=== PATIENT | female | born 1965 | race Hispanic/Latino ===

== ENCOUNTER 2017-08-12 09:44 | Observation (INO) | payer OTHER ==
--- OUTSIDE RECORDS SUMMARY | 2017-08-12 09:46 | XMS REPORT ---
:1965 Author Organization [facility] Address [address] [place] [address] Care Team Providers Name Role Phone UNKNOWN, REFFERING Primary Care Provider Unavailable Problems This patient has no known problems. Allergies, Adverse Reactions, Alerts This patient has no known allergies or adverse reactions. Medications This patient has no known medications. Encounters Start End Encounter Admission Attending Care Care Encounter Date/Time Date/Time Type Type Clinicians Facility Department ID 2017-02-14 2017-02-14 Emergency E [facility] [id number] 17:25:00 17:25:00 Results Test Description Test Time Test Comments Text Results Atomic Results Result Comments XR FOOT 3+V, COMPLETE-RIGHT 2017-02-14 18:07:15 EXAM: XR FOOT 3 VIEWS, RIGHTINDICATION: PainCOMPARISON: None availableTECHNIQUE: AP, lateral and oblique views of the right foot.FINDINGS: No acute fracture or dislocation is identified. No osseous lesions.There is joint space narrowing with osteophytosis of the tibiotalar andsubtalar joints. No soft tissue abnormality is identified.IMPRESSION: Degenerative changes of the tibiotalar and subtalar joints.LOCATION: R16 XR ANKLE 3+V, 2017-02-14 18:06:29 EXAM: XR ANKLE 3 VIEWS, COMPLETE-RIGHT RIGHTINDICATION: PainCOMPARISON: None availableTECHNIQUE: AP, lateral and oblique views of the right ankle.FINDINGS: No acute fracture or dislocation is identified. No osseous lesions.There are degenerative changes at the tibiotalar joint and subtalarjoints with osteophytosis noted. No soft tissue abnormality isidentified.IMPRESSION: Degenerative changes of the tibiotalar and subtalar joints.LOCATION: [facility]16 XR TIBIA/FIBULA.-RIGHT 2017-02-14 18:05:14 EXAM: XR TIBIA AND FIBULA 2 VIEWS, RIGHTINDICATION: PainCOMPARISON: None availableTECHNIQUE: AP and lateral views of the right tibia and fibula.FINDINGS: No acute fracture or dislocation is identified. No osseous lesions. Nosoft tissue abnormality is identified.IMPRESSION: No acute osseous abnormality of the right tibia and fibula.LOCATION: R16
--- NOTE | 2017-08-12 10:28 | ER ---
Nurse's Notes [facility] Name: Cat Barnes Age: 52 yrs Sex: Female : 1965 Arrival Date: 08/12/2017 Time: 09:50 Bed 4 Private MD: Diagnosis: Chest pain, unspecified;Essential (primary) hypertension Presentation: 08/12 09:53 Presenting complaint: EMS states: Was at work sitting at her desk and experienced ph sudden onset of sharp,midsternal chest pain that lasted approx 1 min, also reports SOB when episode occurred, denies radiation or N/V, pt hypertensive on scene w/ BP 190s/100s, 12 lead normal, 325 aspirin administered. Transition of care: patient was not received from another setting of care. Onset of symptoms was August 12, 2017. Risk Assessment: Do you want to hurt yourself or someone else? Patient reports no desire to harm self or others. Initial Sepsis Screen: Does the patient meet any 2 criteria? No. Patient's initial sepsis screen is negative. Does the patient have a suspected source of infection? No. Patient's initial sepsis screen is negative. Care prior to arrival: Medication(s) given: ASA, 325 mg, IV initiated. 20 GA, in the left antecubital area. 09:53 Method Of Arrival: EMS: [facility] ph 09:53 Acuity: DELTA 3 ph ADMISSIONS DEAN: 09:56 LMP N/A - Hysterectomy ph Historical: - Allergies: 10:01 No Known Allergies; ph - Home Meds: 10:01 clonazepam Oral [Active]; unknown BP med [Active]; ph - PMHx: 10:01 Hypertension; Anxiety; ph - PSHx: 10:01 Hysterectomy; back sx; ph - Immunization history:: Adult Immunizations unknown. - Social history:: Smoking status: Patient/guardian denies using tobacco. - Ebola Screening: : No symptoms or risks identified at this time. - Family history:: not pertinent. Screenin:01 Abuse screen: Denies threats or abuse. Denies injuries from another. Nutritional ph screening: No deficits noted. Tuberculosis screening: No symptoms or risk factors identified. Fall Risk None identified. Assessment: 10:02 General: Appears in no apparent distress. comfortable, well groomed, Behavior is calm, ph cooperative, appropriate for age. Pain: Denies pain. Neuro: Level of Consciousness is awake, alert, obeys commands, Oriented to person, place, time, situation. 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 Rhythm is sinus rhythm Chest pain quality is sharp, is located in substernal area began suddenly, episodes 1 min. Respiratory: Airway is patent Respiratory effort is even, unlabored, Respiratory pattern is regular, symmetrical, Breath sounds are clear bilaterally. GI: No signs and/or symptoms were reported involving the gastrointestinal system. Patient currently denies abdominal pain, nausea, vomiting. Derm: Skin is intact, is healthy with good turgor, Skin is pink, warm \T\ dry. Musculoskeletal: Circulation, motion, and sensation intact. Range of motion: intact in all extremities. 10:49 Reassessment: Patient appears in no apparent distress at this time. Patient and/or ph family updated on plan of care and expected duration. Pain level reassessed. Patient is alert, oriented x 3, equal unlabored respirations, skin warm/dry/pink. Pt resting quietly, denies pain or SOB at this time, awaiting lab results, at bedside. 12:35 Reassessment: Patient appears in no apparent distress at this time. Patient and/or ph family updated on plan of care and expected duration. Pain level reassessed. Patient is alert, oriented x 3, equal unlabored respirations, skin warm/dry/pink. Dr Rehman at bedside to speak with pt and SO. 13:42 Reassessment: Patient appears in no apparent distress at this time. Patient and/or ph family updated on plan of care and expected duration. Pain level reassessed. Patient is alert, oriented x 3, equal unlabored respirations, skin warm/dry/pink. Report called to Dayanna WEAVER, pt taken to 4th floor via wheelchair Patient denies pain at this time. Vital Signs: 09:56 BP 154 / 92; Pulse 78; Resp 18; Temp 98.7; Pulse Ox 98% on R/A; Weight 99.79 kg; Height ph 5 ft. 7 in. (170.18 cm); Pain 0/10; 10:49 BP 130 / 88; Pulse 67; Resp 18; Pulse Ox 100% on R/A; ph 11:44 BP 131 / 87; Pulse 74; Resp 16; Pulse Ox 100% on R/A; mt 12:37 BP 142 / 89; Pulse 72; Resp 18; Temp 98.2; Pulse Ox 99% on R/A; ph 09:56 Body Mass Index 34.46 (99.79 kg, 170.18 cm) ph ED Course: 09:50 Patient arrived in ED. em1 09:53 Cat Chairez, OWEN is Primary Nurse. ph 09:55 Buck Christopher MD is Attending Physician. aurora 09:56 Triage completed. ph 10:01 Arm band placed on. ph 10:02 Patient has correct armband on for positive identification. Placed in gown. Bed in low ph position. Call light in reach. Side rails up X 1. manager monitoring on. Pulse ox on. NIBP on. Warm blanket given. 10:04 EKG done, by neurophysiology tech. reviewed by Buck Christopher MD. at1 10:24 X-ray completed. Portable x-ray completed in exam room. Patient tolerated procedure jb2 well. 10:26 XRAY Chest (1 view) In Process Unspecified. EDMS 10:27 Arsalan Hartley MD is Hospitalizing Provider. aurora 10:50 No provider procedures requiring assistance completed. Maintain EMS IV. Dressing ph intact. Good blood return noted. Site clean \T\ dry. Gauge \T\ site: 20 LAC. 11:33 Radiology exam delayed due to lab results not completed at this time. (BUN/Creatinine). sj 13:43 Patient admitted, IV remains in place. ph Administered Medications: 11:58 Drug: Lovenox 1 mg/kg Route: Sub-Q; Site: right lower abdomen; ph 13:44 Follow up: Response: No adverse reaction ph 11:58 Drug: Lopressor (metoprolol TARTRATE) 50 mg Route: PO; ph 13:43 Follow up: Response: No adverse reaction; Blood pressure is lowered ph 11:59 Drug: Pepcid 20 mg Route: IVP; Site: left antecubital; ph 13:45 Follow up: Response: No adverse reaction ph 12:01 Drug: NS 0.9% 1000 ml Route: IV; Rate: 125 ml/hr; Site: left antecubital; ph 13:45 Follow up: Response: No adverse reaction; IV Status: Infusion continued upon admission ph 12:01 Not Given (Other Intervention Used; administered by EMS): Aspirin Chewable Tablet 324 ph mg PO once; 81 mg tablets x 4 Outcome: 10:26 Discharge ordered by . aurora 10:28 Decision to Hospitalize by Provider. aurora 13:42 Admitted to Tele accompanied by tech, family with patient, via wheelchair, room 417, ph with chart, Report called to OWEN Alan 13:42 Condition: good 13:42 Instructed on the need for admit. 13:45 Patient left the ED. ph Signatures: Dispatcher [employer] EDBuck Kumar MD MD cha Buechter, Jose Alberto hester2 Yosi, Jayne Vivas, Jerel em1 Melanie james, switchboard clerk EKG Tat1 Cat Chairez RN RN ph Mayda Valero mt Corrections: (The following items were deleted from the chart) 10:48 09:56 BP 154 / 92; Pulse 78bpm; Resp 18bpm; Pulse Ox 98% RA; Temp 98.7F; Pain 0/10; ph ph
--- NOTE | 2017-08-12 10:28 | EDPHYS ---
Physician Documentation [facility] Name: Cat Barnes Age: 52 yrs Sex: Female : 1965 Arrival Date: 08/12/2017 Time: 09:50 Bed 4 Private MD: ED Physician Buck Christopher HPI: 08/12 10:16 This 52 yrs old Female presents to ER via EMS with complaints of chest pain. aurora 10:16 The patient or guardian reports chest pain that is located primarily in the substernal aurora area, anterior chest wall, right. Onset: just prior to arrival. The pain does not radiate. Associated signs and symptoms: The patient has no apparent associated signs or symptoms. The chest pain is described as a heaviness, a pressure. Modifying factors: The symptoms are alleviated by nothing. the symptoms are aggravated by nothing. Severity of pain: At its worst the pain was moderate in the emergency department the pain has improved moderately. The patient has experienced similar episodes in the past, a few times. 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 - Social history:: Smoking status: Patient/guardian denies using tobacco. - Ebola Screening: : No symptoms or risks identified at this time. - Family history:: not pertinent. ROS: 10:16 Constitutional: Negative for fever, chills, and weight loss, Eyes: Negative for injury, aurora pain, redness, and discharge, ENT: Negative for injury, pain, and discharge, Neck: Negative for injury, pain, and swelling, Respiratory: Negative for shortness of breath, cough, wheezing, and pleuritic chest pain, Abdomen/GI: Negative for abdominal pain, nausea, vomiting, diarrhea, and constipation, Back: Negative for injury and pain, : Negative for injury, bleeding, discharge, and swelling, MS/Extremity: Negative for injury and deformity, Skin: Negative for injury, rash, and discoloration, Neuro: Negative for headache, weakness, numbness, tingling, and seizure, Psych: Negative for depression, anxiety, suicide ideation, homicidal ideation, and hallucinations, Allergy/Immunology: Negative for hives, rash, and allergies, Endocrine: Negative for neck swelling, polydipsia, polyuria, polyphagia, and marked weight changes, Hematologic/Lymphatic: Negative for swollen nodes, abnormal bleeding, and unusual bruising. 10:16 Cardiovascular: Positive for chest pain, of the chest. Exam: 10:16 Constitutional: This is a well developed, well nourished patient who is awake, alert, aurora and in no acute distress. Head/Face: Normocephalic, atraumatic. Eyes: Pupils equal round and reactive to light, extra-ocular motions intact. Lids and lashes normal. Conjunctiva and sclera are non-icteric and not injected. Cornea within normal limits. Periorbital areas with no swelling, redness, or edema. ENT: Nares patent. No nasal discharge, no septal abnormalities noted. Tympanic membranes are normal and external auditory canals are clear. Oropharynx with no redness, swelling, or masses, exudates, or evidence of obstruction, uvula midline. Mucous membranes moist. Neck: Trachea midline, no thyromegaly or masses palpated, and no cervical lymphadenopathy. Supple, full range of motion without nuchal rigidity, or vertebral point tenderness. No Meningismus. Chest/axilla: Normal chest wall appearance and motion. Nontender with no deformity. No lesions are appreciated. Cardiovascular: Regular rate and rhythm with a normal S1 and S2. No gallops, murmurs, or rubs. Normal PMI, no JVD. No pulse deficits. Respiratory: Lungs have equal breath sounds bilaterally, clear to auscultation and percussion. No rales, rhonchi or wheezes noted. No increased work of breathing, no retractions or nasal flaring. Abdomen/GI: Soft, non-tender, with normal bowel sounds. No distension or tympany. No guarding or rebound. No evidence of tenderness throughout. Back: No spinal tenderness. No costovertebral tenderness. Full range of motion. Female : Normal external genitalia. Skin: Warm, dry with normal turgor. Normal color with no rashes, no lesions, and no evidence of cellulitis. MS/ Extremity: Pulses equal, no cyanosis. Neurovascular intact. Full, normal range of motion. Neuro: Awake and alert, GCS 15, oriented to person, place, time, and situation. Cranial nerves II-XII grossly intact. Motor strength 5/5 in all extremities. Sensory grossly intact. Cerebellar exam normal. Normal gait. Psych: Awake, alert, with orientation to person, place and time. Behavior, mood, and affect are within normal limits. 10:16 Musculoskeletal/extremity: ROM: intact in all extremities, full active range of motion, full passive range of motion, Circulation is intact in all extremities. Pulses: Compartment Syndrome exam of affected extremity: is normal. DVT Exam: No signs of deep vein thrombosis. no pain, no swelling, no tenderness, negative Homans' sign noted on exam, no appreciated bluish discoloration, no erythema, no increased warmth. Vital Signs: 09:56 BP 154 / 92; Pulse 78; Resp 18; Temp 98.7; Pulse Ox 98% on R/A; Weight 99.79 kg; Height ph 5 ft. 7 in. (170.18 cm); Pain 0/10; 10:49 BP 130 / 88; Pulse 67; Resp 18; Pulse Ox 100% on R/A; ph 11:44 BP 131 / 87; Pulse 74; Resp 16; Pulse Ox 100% on R/A; mt 12:37 BP 142 / 89; Pulse 72; Resp 18; Temp 98.2; Pulse Ox 99% on R/A; ph 09:56 Body Mass Index 34.46 (99.79 kg, 170.18 cm) ph MDM: 09:55 Patient medically screened. [facility] 10:16 AMY Risk Score:. Data reviewed: vital signs, nurses notes, lab test result(s), EKG, [facility] radiologic studies, plain films. 08/12 10:11 Order name: Basic Metabolic Panel [facility] 08/12 10:11 Order name: CBC with Diff; Complete Time: 12: [facility] 08/12 10:11 Order name: Ckmb [facility] 08/12 10:11 Order name: CPK [facility] 08/12 10:11 Order name: LFT's [facility] 08/12 10:11 Order name: Magnesium [facility] 08/12 10:11 Order name: NT PRO-BNP [facility] 08/12 10:11 Order name: PT-INR; Complete Time: 12:08/12 10:11 Order name: Ptt, Activated; Complete Time: 12: [facility] 08/12 10:11 Order name: Troponin (emerg Dept Use Only); Complete Time: 12:05 [facility] 08/12 10:11 Order name: Lipase [facility] 08/12 10:11 Order name: D-Dimer; Complete Time: 12:05 [facility] 08/12 12:02 Order name: Urine Dipstick--Ancillary (enter results) em 08/12 13:09 Order name: Urine Dipstick-Ancillary [facility] 08/12 10:11 Order name: XRAY Chest (1 view); Complete Time: 12:05 [facility] 08/12 10:11 Order name: EKG; Complete Time: 10:12 [facility] 08/12 10:11 Order name: Cardiac monitoring; Complete Time: 10:44 [facility] 08/12 10:11 Order name: EKG - Nurse/Tech; Complete Time: 10:44 [facility] 08/12 10:11 Order name: IV Saline Lock; Complete Time: 10:45 [facility] 08/12 10:11 Order name: Labs collected and sent; Complete Time: 10:45 [facility] 08/12 10:11 Order name: O2 Per Protocol; Complete Time: 10:45 [facility] 08/12 10:31 Order name: CONS Physician Consult [facility] 08/12 11:26 Order name: CT Chest For PE Angio [facility] 08/12 12:42 Order name: CT [facility] 08/12 10:11 Order name: O2 Sat Monitoring; Complete Time: 10:45 [facility] 08/12 10:11 Order name: Urine Dipstick-Ancillary (obtain specimen); Complete Time: 12:01 [facility] Administered Medications: 11:58 Drug: Lovenox 1 mg/kg Route: Sub-Q; Site: right lower abdomen; ph 13:44 Follow up: Response: No adverse reaction ph 11:58 Drug: Lopressor (metoprolol TARTRATE) 50 mg Route: PO; ph 13:43 Follow up: Response: No adverse reaction; Blood pressure is lowered ph 11:59 Drug: Pepcid 20 mg Route: IVP; Site: left antecubital; ph 13:45 Follow up: Response: No adverse reaction ph 12:01 Drug: NS 0.9% 1000 ml Route: IV; Rate: 125 ml/hr; Site: left antecubital; ph 13:45 Follow up: Response: No adverse reaction; IV Status: Infusion continued upon admission ph 12:01 Not Given (Other Intervention Used; administered by EMS): Aspirin Chewable Tablet 324 ph mg PO once; 81 mg tablets x 4 Disposition: 08/12/17 10:28 Hospitalization ordered by Arsalan Hartley for Observation. Preliminary diagnosis are Chest pain, unspecified, Essential (primary) hypertension. - Bed requested for Telemetry/MedSurg (observation). - Status is Observation. ph - Condition is Stable. - Problem is new. - Symptoms have improved. UTI on Admission? No Signatures: Dispatcher [employer] EDIA Buck Christopher MD MD cha Martinez, Jerel em1 Cat Chairez RN RN ph Corrections: (The following items were deleted from the chart) 10:27 10:26 08/12/2017 10:26 Discharged to Home. Impression: Other chest pain; Essential aurora (primary) hypertension. Condition is Stable. Forms are Medication Reconciliation Form, Thank You Letter, Antibiotic Education, Prescription Opioid Use. Follow up: Private Physician; When: 2 - 3 days; Reason: Recheck today's complaints, Continuance of care, Re-evaluation by your physician. Problem is new. Symptoms have improved. aurora 12:24 10:28 Hospitalization Ordered by Arsalan Hartley MD for Observation. Preliminary diagnosis em1 is Chest pain, unspecified; Essential (primary) hypertension. Bed requested for Telemetry/MedSurg (observation). Status is Observation. Condition is Stable. Problem is new. Symptoms have improved. UTI on Admission? No. aurora 13:45 12:24 08/12/2017 10:28 Hospitalization Ordered by Arsalan Hartley MD for Observation. ph Preliminary diagnosis is Chest pain, unspecified; Essential (primary) hypertension. Bed requested for Telemetry/MedSurg (observation). Status is Observation. Condition is Stable. Problem is new. Symptoms have improved. UTI on Admission? No. em1
[2017-08-12] MEDS ORDERED: ASPIRIN 81 MG CHEWABLE TABLET ONE (10:58)
[2017-08-12] MEDS ORDERED: ENOXAPARIN 100 MG/ML SYR SQ ONE (10:59)
[2017-08-12] MEDS ORDERED: METOPROLOL TAR 50 MG TAB ONE (10:59)
[2017-08-12] MEDS ORDERED: FAMOTIDINE 20 MG/2 ML VIAL IV ONE ×2 (10:59→14:35)
[2017-08-12 11:01] LABS: Absolute Lymphocytes (CBC) 1.5 K/uL (0.7-4.9); Absolute Monocytes 0.5 K/uL (0.1-1.3); Absolute Neutrophil 3.3 K/uL (1.8-8.0); Basophils % 0.5 % (0-1.3); Hematocrit 39.1 % (36.0-45.0); Lymphocytes % 27.4 % (15.3-44.8); MCH 29.7 pg (27.0-35.0); MPV 9.3 fL (7.6-11.3); Monocytes % 9.1 % (3.3-12.3)
--- NOTE | 2017-08-12 11:01 | RAD REPORT ---
EXAM DESCRIPTION: Christophe Single View08/12/2017 10:28 am CLINICAL HISTORY: Chest pain COMPARISON: 2012 FINDINGS: The lungs appear clear of acute infiltrate. The heart is upper limits normal size IMPRESSION: No acute abnormalities displayed
[2017-08-12 11:14] LABS: Protime INR 1.01
[2017-08-12] MEDS ORDERED: MORPHINE 4 MG/ML SYR IV PRN (11:16)
[2017-08-12] MEDS ORDERED: NITROGLYCERIN 0.4 MG/TAB SL PRN (11:16)
[2017-08-12] MEDS ORDERED: ACETAMINOPHEN 500 MG TAB PO PRN (11:16)
[2017-08-12 11:53] LABS: ALT/SGPT 29 U/L (12-78); AST/SGOT 20 U/L (15-37); Albumin 4.1 g/dL (3.4-5.0); Alkaline Phosphatase 95 U/L (45-117); BUN Blood Urea Nitrogen 12 mg/dL (7-18); Bicarbonate 27 mmol/L (21-32); Bilirubin Direct 0.1 mg/dL (0-0.2); Bilirubin Total 0.6 mg/dL (0.2-1.0); CKMB Creatine Kinase MB < 1.0 ng/mL (0.3-3.6); Creatine Phosphokinase 104 U/L (26-192); Glucose Level 97 mg/dL (74-106); Lipase 123 U/L (73-393); Magnesium 2.4 mg/dL (1.8-2.4); NT PRO-BNP 35 pg/mL (<125); Potassium 3.6 mmol/L (3.5-5.1); Protein, Total 7.5 g/dL (6.4-8.2); Sodium Level 140 mmol/L (136-145)
--- NOTE | 2017-08-12 12:41 | RAD REPORT ---
EXAM DESCRIPTION: CT - Chest For Pe Angio - 08/12/2017 12:22 pm CLINICAL HISTORY: Chest pain COMPARISON: 2012 TECHNIQUE: Dynamically enhanced axial 3 mm thick images of the chest were obtained during administra tion of <100> mL Isovue 370 IV contrast. Coronal and oblique reconstruction images were generated and reviewed. Exam utilizes a protocol for optimal evaluation of pulmonary arterial tree. Maximum intensity projections 3D imaging was utilized All CT scans are performed using dose optimization technique as appropriate and may include automated exposure control or mA/KV adjustment according to patient size. FINDINGS: A pulmonary embolus is not seen. A thoracic aortic aneurysm is not noted. A pleural effusion is not seen. A pericardial effusion is not seen. A lung consolidation is not present. The liver has a diminished attenuation consistent with fatty infiltration. IMPRESSION: Negative for a pulmonary embolism.
--- NOTE | 2017-08-12 12:45 | EKG ---
Test Date: 2017-08-12 Test Time: 09:55:15 Construction Driver: REAGAN MEASUREMENT RESULTS: Intervals: Rate: 70 CT: 166 QRSD: 92 QT: 428 QTc: 462 [place]: P: 47 CT: 166 QRS: 14 T: 10 INTERPRETIVE STATEMENTS: Normal sinus rhythm Nonspecific T wave abnormality Prolonged QT Abnormal ECG Compared to ECG 11/08/2012 06:44:54 T-wave abnormality now present Prolonged QT interval now present Sinus bradycardia no longer present Electronically Signed On 08-12-17 12:44:09 CDT by Yuri Rehman
[2017-08-12 13:09] LABS: Urine Blood NEGATIVE (NEG); Urine Glucose NEGATIVE (NEG); Urine Protein NEGATIVE (NEG); Urine Specific Gravity 1.015 (1.005-1.030); Urine pH 6.5 (5.0-7.0)
[2017-08-12 14:07] VITALS: BMI 36.0
[2017-08-12] MEDS ORDERED: NA CHLORIDE 0.9% 1,000 ML ONE (14:34)
[2017-08-12] MEDS ORDERED: HOME MED 1 EA UNK (Zaleplon [Zaleplon] 10 MG) PO PRN (14:52)
[2017-08-12] MEDS ORDERED: clonazePAM 1 MG TAB PO PRN (14:52)
[2017-08-12] MEDS ORDERED: ZOLPIDEM TARTRATE 5 MG TABLET PO PRN (15:21)
[2017-08-12] MEDS: hydroCHLOROthiazide 12.5 MG CAP PO SCH (15:57)
[2017-08-12] MEDS: VENLAFAXINE HCL XR 75 MG CAP PO SCH (15:57)
--- NOTE | 2017-08-12 16:34 | CON ---
Reason For Consultation: Mrs. Barnes is a 52-year-old. She came to the hospital because of chest pa in. History Of Present Illness: Mrs. Barnes 10 years ago had chest pain. NH was ruled out. She has nikia quent anxiety spells. She was not anxious when this one happened. She was at work, sitting in her d esk, not under emotional and physical distress, not behind under any pressing deadlines. She started to have discomfort in the center part of her chest. It lasted a minute, went away, came back, laste d about 15 minutes. Following that, she has felt fine since being in the emergency room. She has melara d an EKG that looks normal. Enzymes and other blood tests are normal. Chest x-ray likewise is withi n normal limits. The patient takes a lipid medication. She is said to have hypertension, but not di abetes. Social History: She uses no tobacco, no alcohol, no illegal drugs. Allergies: SHE HAS NO ALLERGIES. Past Surgical History: She has had a hysterectomy. Past Medical History: She is multigravid. Normal pregnancies and deliveries. Medications: We do not seem to have a list of medications. Physical Examination: Vital Signs: Blood pressure 154/92, pulse 78. Mildly overweight. HEENT: Normal. Carotids: No bruit. Lungs: Clear. Cardiac: Within normal limits. Abdomen: Soft. Extremities: Normal. Assessment And Plan: The patient should have a nuclear stress test and echo. If those are normal, s he could be discharged. Her symptoms could of course be due to gallstones as well. A CT of the ches t has been done. I am not sure if it is able to evaluate whether gallstones are present or not. It is an unreported test as of this point. DARIAN/HANNAH Voice ID: [id number] Report ID: [id number]
--- NOTE | 2017-08-12 17:00 | ECHO ---
HEIGHT: 5 ft 7 in WEIGHT: 230 lb 0 oz DATE OF STUDY: 08/12/[address]: Arsalan Hartley MD 2-DIMENSIONAL: YES M.MODE: YES DOPPLER: YES COLOR FLOW: YES TDS: PORTABLE: DEFINITY: BUBBLE STUDY: DIAGNOSIS: CHEST PAIN CARDIAC HISTORY: CATHERIZATION: NO SURGERY: NO PROSTHETIC VALVE: NO PACEMAKER: NO MEASUREMENTS (cm) DIASTOLIC (NORMALS) SYSTOLIC (NORMALS) IVSd 0.9 (0.6-1.2) LA Diam 3.5 (1.9-4.0) LVEF 70% LVIDd 4.9 (3.5-5.7) LVIDs 3.0 (2.0-3.5) %FS 39% LVPWd 1.1 (0.6-1.2) Ao Diam 3.0 (2.0-3.7) 2 DIMENSIONAL ASSESSMENT: RIGHT ATRIUM: NORMAL LEFT ATRIUM: NORMAL RIGHT VENTRICLE: NORMAL LEFT VENTRICLE: NORMAL TRICUSPID VALVE: NORMAL MITRAL VALVE: NORMAL PULMONIC VALVE: NORMAL AORTIC VALVE: NORMAL PERICARDIAL EFFUSION: NONE AORTIC ROOT: NORMAL LEFT VENTRICULAR WALL MOTION: NORMAL DOPPLER/COLOR FLOW: TRACE AORTIC REGURGITATION. MILD TRICUSPID REGURGITATION. NORMAL RIGHT VENTRICULAR SYSTOLIC PRESSURE. COMMENTS: NORMAL TWO DIMENSIONAL ECHOCARDIOGRAM. MILD TRICUSPID REGURGITATION. TRACE AORTIC REGURGITATION. TECHNOLOGIST: DAILY ALEX
[2017-08-12] MEDS: CARVEDILOL 12.5 MG TAB PO SCH (18:00)
[2017-08-12] MEDS ORDERED: ATORVASTATIN 40 MG TAB PO SCH (21:00)
--- NOTE | 2017-08-13 01:50 | HP ---
Date of Admission: 08/12/2017 Doughnut Machine Operator Helper: Dr. Rehman with Cardiology. Chief Complaint: Chest pain. History Of Present Illness: The patient is a 52-year-old female with past medical history of hyperte nsion, hyperlipidemia, generalized anxiety disorder, who was in her usual state of health at work whe n she had sudden onset of chest pain that lasted less than 5 minutes, was substernal, nonradiating, a ssociated with some shortness of breath. No nausea, vomiting, diaphoresis, or palpitations. The pat ient was at rest when the pain occurred. No alleviating or aggravating factors. The patient's sympt oms are constant, moderate, progressively worsening. The patient therefore came into the ER for furt her evaluation. Upon arrival, her vital signs were stable. She was afebrile. Her workup was negati ve including initial troponin. Her D-dimer however was elevated at 587. CT angio chest was done to rule out PE, which was negative. Her EKG did not show any acute changes. The patient was then refer red for admission for chest pain, rule out AL. The patient does report some recent stressors in life with her mother passing away a month ago. When seen in the ER she was awake, alert, oriented x3, no t in acute distress. Past Medical History: Hypertension, hyperlipidemia, generalized anxiety disorder. Pas Surgical History: Back surgery, cholecystectomy. Allergies: NO KNOWN DRUG ALLERGIES. Medications: List reviewed. Social History: The patient denies any tobacco use. Does report some occasional alcohol. No illici t drug use. 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 Family History: Positive for hypertension, hyperlipidemia, and diabetes. Review of Systems: An 11-point system reviewed, negative except as per HPI. Physical Examination: Vital Signs: Temperature 98.7, heart rate 55, blood pressure 149/87, respirations 20, O2 98% on room air. General: Awake, alert, oriented x3, not in acute distress. Obese, BMI 36. HEENT: Normocephalic, atraumatic. PERRLA. EOMI. Moist mucous membranes. Oropharynx is clear. No rmal dentition. Conjunctivae anicteric. Neck: Supple. No JVD. Trachea midline. CV: S1, S2. No murmurs. Regular rate and rhythm. Peripheral pulses are present bilaterally. Respiratory: Clear to auscultation bilaterally. No wheezing. No stridor. No use of accessory musc les. Gastrointestinal: Abdomen is soft, nontender, nondistended. Positive bowel sounds. No guarding or rigidity. Extremities: No clubbing, cyanosis, or edema. No calf tenderness. Neurologic: Cranial nerves 2 through 12 intact grossly, 5/5 bilateral upper and lower extremities st rength and sensation intact to light touch. Speech is normal. Skin: No rashes. Normal skin turgor. Psych: Mood is okay. Affect is full. Insight and judgment are good. Laboratory Data: Sodium 140, potassium 3.6, chloride 104, CO2 27, BUN 12, creatinine 0.8, glucose 97 , calcium 8.6, magnesium 2.4. Troponin less than 0.02. BNP 35. Lipase 123. INR 1.01. D-dimer 587 . WBC 5.4, H and H 13.3 and 39.1, platelets 203. UA is negative, does show 1+ leukocyte esterase, b ut negative nitrites and no wbc's or bacteria. Chest x-ray, personally reviewed, shows no acute abno rmalities. CT angio shows negative for pulmonary embolism, does report some fatty infiltration. EKG normal sinus rhythm, rate of 70, nonspecific T-wave abnormality. Assessment: A 52-year-old female with; 1.Chest pain, rule out acute coronary syndrome. We will start the patient on chest pain guidelines, aspirin, statin, and beta-yesenia. We will obtain serial cardiac enzymes and EKG. Niru and morphi ne p.r.n. Dr. Rehman of Cardiology has been consulted. We will obtain echocardiogram. The patient has been scheduled for stress test in the morning. 2.Elevated D-dimer. CT angio of the chest is negative for pulmonary embolism. 3.Fatty liver. The patient has been counseled regarding diet and exercise modification. 4.Essential hypertension. Resume home medications as appropriate. 5.Hyperlipidemia. We will continue statin. 6.Generalized anxiety disorder. We will continue benzodiazepines p.r.n. 7.Gastrointestinal and deep venous thrombosis prophylaxis with PPI and Lovenox. Plan: Anticipate stress test in a.m. We will likely discharge if negative. /HANNAH Voice ID: [id number]
[2017-08-13 04:21] LABS: Absolute Lymphocytes (CBC) 1.9 K/uL (0.7-4.9); Absolute Monocytes 0.7 K/uL (0.1-1.3); Absolute Neutrophil 3.1 K/uL (1.8-8.0); Basophils % 0.6 % (0-1.3); Eosinophils % 2.8 % (0-4.4); Hematocrit 38.8 % (36.0-45.0); Lymphocytes % 32.6 % (15.3-44.8); MCH 28.8 pg (27.0-35.0); MCV 87.9 fL (80-100); MPV 9.7 fL (7.6-11.3); Monocytes % 11.4 % (3.3-12.3); RBC Red Blood Cell Count 4.41 M/uL (3.86-4.86)
[2017-08-13 05:13] LABS: Potassium 3.8 mmol/L (3.5-5.1)
[2017-08-13] MEDS: CARVEDILOL 12.5 MG TAB PO SCH (06:00)
[2017-08-13 08:36] VITALS: O2SAT 96
[2017-08-13] MEDS ORDERED: HOME MED 1 EA UNK (Losartan/Hydrochlorothiazide [Losartan-Hctz 100-12.5 Mg Tab] 1 TAB) PO SCH ×2 (09:00)
[2017-08-13] MEDS ORDERED: ENOXAPARIN 40 MG/0.4 ML SQ SCH (09:00)
[2017-08-13] MEDS ORDERED: ASPIRIN EC 81 MG TAB PO SCH (09:00)
[2017-08-13] MEDS: VENLAFAXINE HCL XR 75 MG CAP PO SCH (10:29)
[2017-08-13] MEDS: ASPIRIN 325 MG TAB PO SCH (10:29)
[2017-08-13] MEDS: LOSARTAN POTASSIUM 50 MG TABLET PO SCH (10:30)
[2017-08-13] MEDS: hydroCHLOROthiazide 12.5 MG CAP PO SCH (10:30)
--- NOTE | 2017-08-13 10:59 | RAD REPORT ---
EXAM DESCRIPTION: NM - Rest Stress Cardiac Imaging - 08/13/2017 10:36 am CLINICAL HISTORY: Chest pain COMPARISON: None. TECHNIQUE: The patient was administered 10.2 mCi of Tc 99m Sestamibi prior to resting SPECT imaging of the heart. The patient was then administered 31.7 mCi of Tc 99m Sestamibi following exercise or ph armacologic stress. Multiplanar SPECT images were reviewed. FINDINGS: The end diastolic volume is 78 ml, the end systolic volume is 31 ml, and the ejection frac tion is 61 %. Physiologic distribution of the radiopharmaceutical through the myocardium is noted. No stress induce d ischemic defect is seen to suggest stress induced ischemia. No fixed defect is seen to suggest hibe rnating myocardium or scarred myocardium. IMPRESSION: No stress induced ischemia or other suspicious findings. Ventricular volumes and ejection fraction are normal range.
[2017-08-13 11:29] VITALS: BP 120/73; TEMP 97
--- NOTE | 2017-08-13 13:02 | TREADMILL ---
70% H.R.: 117 85% H.R.: 142 90% H.R.: 150 100% H.R.: 167 DX: CHEST PAIN Date of Study: 08/13/2017 Ht: 5 7 Wt: 230 lb 0 oz Consulting Physician: PONCE MEDICATIONS: TYLENOL, ASPIRIN, LIPITOR, COREG, LOVENOX, COZAAR, NITROSTAT HISTORY: 52 YEAR OLD FEMALE WITH COMPLAINTS OF CHEST PAIN. MEDICAL HISTORY OF HYPERTENSION AND ANXIETY. PHYSICIAL EXAMINATION: RESTING B.P.: 136/86 RESTING H.R.: 76 RESTING EKG: NORMAL PROTOCOL: ENEIDA ROUTINE EXERCISE TIME: 7:54 MAXIMUM HEART RATE: 149 89 % OF PREDICTED B.P. AT PEAK STRESS: 102/63 127/104 H.R. AT 1 MINUTE POST EXERCISE: 134 IMPRESSION: ENEIDA CARDIOLITE STRESS STOPPED DUE TO TARGET HEART RATE BEING REACHED PER PROTOCOL. SEE NUCLEAR MEDICINE REPORT. NO SUPRAVENTRICULAR OR VENTRICULAR TACHYCARDIA NOTED. NO PREMATURE VENTRICULAR COMPLEXES. DENIED CHEST PAIN.
--- NOTE | 2017-08-14 02:47 | DS ---
Date of Discharge: 08/13/2017 Geodetic Advisor: Dr. Rehman with Cardiology. Admitting Diagnoses: 1.Chest pain, rule out acute coronary syndrome. 2.Generalized anxiety disorder. 3.Obesity, body mass index of 36. 4.Elevated D-dimer. 5.Fatty liver disease. 6.Essential hypertension. 7.Hyperlipidemia. Discharge Diagnoses: 1.Chest pain. Acute coronary syndrome ruled out. 2.Elevated D-dimer. CT angio negative for pulmonary embolism. 3.Fatty liver disease, counseled. 4.Essential hypertension, stable. 5.Mixed hyperlipidemia. Continue statin. 6.Generalized anxiety disorder. We will continue Klonopin p.r.n. Hospital Course: The patient is a 52-year-old female, who comes in with chest pain at rest. The pat ient was evaluated in the ER and then admitted for chest pain to rule out ACS. Her workup was negati ve. Troponin levels were negative x3. She did have a nuclear stress test done which was ordered by Cardiology. No stress-induced ischemia was seen. Her ejection fraction was normal on echocardiogram . She did have an elevated D-dimer and CT angio chest was done to rule out PE which was negative. T he patient was thought to have anxiety and panic attack causing her symptoms. The patient otherwise did well, did not have any further recurrence of her symptoms. Her lipid panel was normal. The josh ent was then cleared for discharge. Her symptoms had resolved. She was counseled on her fatty liver disease, which I explained to her can lead to fatty liver disease leading to cirrhosis of the liver in 20 years if untreated. She was recommended to have diet and exercise modification and to follow u p with her primary care physician for further workup and to establish care with GI. She is also yoan mmended to have colonoscopy, as she is above age of 49. The patient was then cleared for discharge a nd the patient was sent home in a stable condition. Activity: As tolerated. Medications: As per medication reconciliation list. Followup: Follow up with primary care physician in 2 to 3 days, Dr. Kerwin Emmanuel. Follow up with director medical affairs, Dr. Rehman, in 2 weeks. Return to ER for worsening condition. Diet: Heart healthy. Activity: As tolerated. Physical Examination: General: Awake, alert, oriented, no acute distress. CV: S1, S2. No murmurs. Respiratory: Clear to auscultation bilaterally. No wheezing. Gastrointestinal: Abdomen is soft, nontender, nondistended. Positive bowel sounds. Extremities: No clubbing, cyanosis, edema. Neurologic: Nonfocal. SA/MODL Voice ID: [id number] Report ID: [id number]
--- NOTE | 2017-08-14 08:47 | PN ---
Date of Progress Note: 08/13/2017 Ms. Barnes is 52. She was seen by Dr. Rehman for chest pain and hypertension. She was [facility] to [facility]. On 08/13/2017, she underwent a stress test without any blood pressure issue or ST changes or arrhythmias. Her echocardiogram was normal. Her Myoview was normal. She can go home whenever it is okay with Dr. [facility]. GREGORY/HANNAH Voice ID: [id number] Report ID: [id number]
== END 2017-08-13 13:05 | disposition home or self-care (01) ==
LOC: ER 09:44 → ERHOLD 10:29 → 4TH 13:40
PROVIDERS: ADMIT Family Medicine; ATTEND Family Medicine
DX: R07.9 Chest pain, unspecified (principal); R79.1 Abnormal coagulation profile; K76.0 Fatty (change of) liver, not elsewhere classified; E78.2 Mixed hyperlipidemia; F41.1 Generalized anxiety disorder; E66.9 Obesity, unspecified; Z68.36 Body mass index [BMI] 36.0-36.9, adult; I10 Essential (primary) hypertension
CPT/HCPCS: 36415; 71045; 71275; 78452; 80048; 80061; 80076; 81003; 82550; 82553; 83690; 83735; 83880; 84484; 85025; 85379; 85610; 85730; 93005; 93017; 93306; 94760; 96361; 96372; 96374; 99285; A9500; G0378; J1650; J7030; Q9967